=== PATIENT | female | born 1965 | race Caucasian/White ===

== ENCOUNTER 2020-11-09 16:57 | Emergency (ER) | payer OTHER, SELFPAY ==
--- NOTE | 2020-11-09 | XR_ITS ---
EXAMINATION: XR CHEST CLINICAL INFORMATION: Back pain COMPARISON: Chest radiograph 11/07/2009 TECHNIQUE: 2 views of the chest were obtained. FINDINGS: No significant abnormality is noted involving the heart, lungs, mediastinum, bony thorax or soft tissues. XR/XR chest 2V IMPRESSION: Unremarkable examination.
[2020-11-09 18:55] VITALS: BP 165/82; PULSE 80; RESP 16; TEMP 36.6; O2SAT 97; BMI 30.7
[2020-11-09 19:14] LABS: MANUAL DIFF FLAG NO
[2020-11-09 19:15] LABS: Basophils Percent Auto 0.3 % (0-2); Eosinophils Absolute Auto 0.3 X10*3/uL (0.0-0.4); Eosinophils Percent Auto 2.1 % (0-4); Hemoglobin 14.9 g/dl (12.0-16.0); Imm Gran Abs Auto 0.03 X10*3/uL (0.00-0.03); Imm Gran Pct Auto 0.2 % (0.0-0.4); Lymphocytes Absolute Auto 4.2 X10*3/uL (1.2-4.9); Lymphocytes Percent Auto 30.1 % (20-40); Mean Corpuscular HGB Conc 33.9 g/dl (31.0-35.0); Mean Corpuscular Hemoglobin 31.4 pg (27.0-33.0); Mean Corpuscular Volume 92.8 fL (80-98); Mean Platelet Volume 10.1 fL (9.4-12.3); Monocytes Absolute Auto 1.1 X10*3/uL (0.1-1.2); Monocytes Percent Auto 7.7 % (2-11); Neutrophils Absolute Auto 8.4 X10*3/uL (2.0-8.3); Neutrophils Percent Auto 59.6 % (45-73); Platelet Count 303 X10*3/uL (160-400); Red Blood Count 4.74 X10*6/uL (4.20-5.50); White Blood Count 14.1 X10*3/uL (4.8-10.8)
[2020-11-09 19:36] LABS: Anion Gap 13 (12-20); Blood Urea Nitrogen 10 mg/dL (9-16); Calcium 8.8 mg/dL (8.4-10.2); Carbon Dioxide 25 mmol/L (22-29); Chloride 105 mmol/L (96-108); Creatinine Clr Calc Pharmacy 84.7; Estimated Glomerular Filt Rate > 60; Glucose Random 97 mg/dL (60-115); Potassium 3.9 mmol/L (3.3-5.1); Sodium 139 mmol/L (135-145)
--- NOTE | 2020-11-09 21:27 | ED_ITS ---
HPI - Back Pain/Injury General Chief Complaint: Back Pain/Injury Stated Complaint: Back pain Time Seen by Provider: 11/09/20 21:27 Source: patient Mode of arrival: ambulatory History of Present Illness HPI Narrative: This is a 55-year-old female, everyday smoker, no other significant medical problems who presents with onset of mid back pain, nonradiating, it became sharp over Monday and Monday and then began to resolve Monday evening, but then resumed this morning. Patient denies exacerbation with deep inspiration or movement upper extremities. No recent history of long car rides or plane trips, hemoptysis, estrogen supplementation, personal history of cancer, recent surgery or bed bound state, calf pain or calf swelling. In a ddition, she denies shortness of breath, fever, chills. For pain control she has attempted aspirin x1. Related Data Allergies Allergy/AdvReac Type Severity Reaction Status Date / Time bee pollen [BEE STINGS] Allergy Severe ANAPHYLAXIS Verified 11/09/20 18:59 gabapentin Allergy Swelling Verified 11/09/20 18:59 bees Allergy Unknown anaphylaxis Uncoded 10/11/17 00:00 Review of Systems Review of Systems: Pertinent positives and negatives as stated in HPI 10 point review systems is otherwise negative. PMFSH Past Medical History Source: nursing notes reviewed Medical History No known health problems Social History Social History Advance Directives: No Advance Directives Information Provided: Yes Physical Exam Vital Signs: Vital Signs: Last Vital Signs Temp 97.8 F 11/09/20 21:41 Pulse 70 11/09/20 21:41 Resp 18 11/09/20 21:41 BP 128/88 11/09/20 21:41 Pulse Ox 97 11/09/20 21:41 Body Mass Index 30.7 VITAL SIGNS: Reviewed. GENERAL: Well developed, well nourished, in no acute distress. NECK: Supple, no adenopathy LUNGS: Normal breath sounds. SpO2<97> CARDIOVASCULAR: Regular rate and rhythm without noted murmurs, no JVD or lower extremity edema. ABDOMEN: Soft, non-tender, non-distended with bowel sounds. No rigidity. No guarding. No palpable masses or hernias noted BACK: There is no midline vertebral tenderness, however there was tenderness to palpation with noted spasm along the left paraspinal mid distance between midline vertebral and left shoulder blade. NEUROLOGIC: Alert and oriented x 4. Course Course Course Narrative: This is a 55-year-old female with history and clinical presentation consistent with likely muscle spasm and was treated with combination analgesics as well as obtaining labs/chest x-ray to rule out pneumonia doubt PE. Review of all investigations is noted for a chronically stable leukocytosis without otherwise noted derangements on the hematologic results. Chest x-ray is negative for evidence pneumothorax, pneumonia. However, patient was recommended to follow up with primary care provider for further evaluation given her smoking history. MDM - Back Pain/Injury Lab Data Result diagrams: 11/09/20 19:09 11/09/20 19:10 Labs: Lab Results 11/09/20 11/09/20 Range/Units 19:09 19:10 WBC 14.1 H (4.8-10.8) X10*3/uL RBC 4.74 (4.20-5.50) X10*6/uL Hgb 14.9 (12.0-16.0) g/dl Hct 44.0 (37-47) % MCV 92.8 (80-98) fL MCH 31.4 (27.0-33.0) pg MCHC 33.9 (31.0-35.0) g/dl RDW 12.0 (11.0-16.0) % Plt Count 303 (160-400) X10*3/uL MPV 10.1 (9.4-12.3) fL Immature Gran % (Auto) 0.2 (0.0-0.4) % Neut % (Auto) 59.6 (45-73) % Lymph % (Auto) 30.1 (20-40) % Sharp % (Auto) 7.7 (2-11) % Eos % (Auto) 2.1 (0-4) % Baso % (Auto) 0.3 (0-2) % Lymph # (Auto) 4.2 (1.2-4.9) X10*3/uL Sharp # (Auto) 1.1 (0.1-1.2) X10*3/uL Eos # (Auto) 0.3 (0.0-0.4) X10*3/uL Baso # (Auto) 0.0 (0.0-0.2) X10*3/uL Abs Immat Gran (auto) 0.03 (0.00-0.03) X10*3/uL Absolute Neuts (auto) 8.4 H (2.0-8.3) X10*3/uL Absolute Nucleated RBC 0.000 (0.0-0.012) X10*3/uL Nucleated RBC % (auto) 0.0 (0.0-0.2) /100WBC Sodium 139 (135-145) mmol/L Potassium 3.9 (3.3-5.1) mmol/L Chloride 105 (96-108) mmol/L Carbon Dioxide 25 (22-29) mmol/L Anion Gap 13 (12-20) BUN 10 (9-16) mg/dL Creatinine 0.82 (0.5-1.4) mg/dL Estim Creat Clear Calc 84.7 Estimated GFR > 60 Random Glucose 97 (60-115) mg/dL Calcium 8.8 (8.4-10.2) mg/dL Lipase 33 (8-78) U/L Discharge Plan Discharge Clinical Impression: Muscle spasm Patient Disposition: Home, Self-Care Instructions: Muscle Spasm (ED) Additional Instructions: 1. Tylenol 1000 mg, orally, every 6 hours as needed for pain control. Do not exceed 4000 mg within 24 hours. 2. Ibuprofen 400 mg, orally with milk or food, every 6 hours as needed for pain control. You may take this medication with Tylenol for additional symptom relief. 3. Lidocaine patch, this is available [id number] at every [facility], apply to area of maximal tenderness as directed on the outside packaging. 4. Please follow-up with your primary care provider in next 2-3 days for re-jer luation. Do not hesitate to come back to the emergency department should she develop any acute worsening of your symptoms or additional symptoms such as fevers/chills that are not resolved by [id number] Tylenol/ibuprofen. Referrals: Paula Longoria MD [Primary Care Provider] - 2 days (Re-evaluation for mid back pain suspected be muscle spasm however patient is everyday smoker. Chest x-ray was negative for acute findings.)
[2020-11-09 21:41] VITALS: BP 128/88; PULSE 70; RESP 18; TEMP 36.6; O2SAT 97
[2020-11-09 21:45] LABS: Lipase 33 U/L (8-78)
[2020-11-09] MEDS: Ketorolac Tromethamine 15 MG/ML VIAL IM (21:51)
[2020-11-09] MEDS: Acetaminophen 325 MG TABLET 975 MG PO (21:52)
[2020-11-09] MEDS: Lidocaine 4 % Patch ADH..PATCH 1 PATCH TRANSDERMA (21:52)
[2020-11-09 22:00] VITALS: PULSE 82; TEMP 37.2; O2SAT 98
[2020-11-09 22:11] LABS: Glucose Urine UA NEG (NEG); Leukocyte Esterase Urine NEG (NEG); Nitrite Urine POS (NEG); Specific Gravity - Urine 1.025 (1.005-1.025); UACC Culture Trigger YES; Urine Blood 1+ (NEG); Urine Ketones NEG (NEG); Urine Protein NEG (NEG-TRACE)
[2020-11-09 22:12] LABS: Appearance Urine HAZY; Color Urine YELLOW
[2020-11-09 22:19] LABS: Bacteria Urine 3+ /LPF; RBC Urine 0-2 /HPF (0); Squamous Epithelial Cell Urine TRACE /LPF; WBC Urine 0-2 /HPF (0-4)
== END 2020-11-09 22:29 | disposition home or self-care (01) ==
PROVIDERS: Emergency Provider Student in an Organized Health Care Education/Training Program; PCP Internal Medicine
DX: M62.830 Muscle spasm of back (principal)
CPT/HCPCS: 36415; 71046; 80048; 81001; 81003; 83690; 85025; 87086; 87088; 87186; 96372; 99284; J1885